=== PATIENT | female | born 1965 | race Caucasian/White ===

== ENCOUNTER → 2018-01-16 | Outpatient (CLI) | payer BC | LOC: MC.RAD 13:40 | DX: Z12.31 Encounter for screening mammogram for malignant neoplasm of breast (principal) ==

== ENCOUNTER 2021-04-08 17:33 | Emergency (ER) | payer BC ==
[~2021-04-08] VITALS: Ht 167.6 cm; Wt 63.6 kg
[2021-04-08 22:07] VITALS: BP 140/92; PULSE 89; TEMP 98.4
== END 2021-04-08 22:07 | disposition home or self-care (01) ==
LOC: COL.ER 17:33
DX: S09.90XA Unspecified injury of head, initial encounter (principal); S01.81XA Laceration without foreign body of other part of head, initial encounter; W01.10XA Fall on same level from slipping, tripping and stumbling with subsequent striking against unspecified object, initial encounter; Y93.01 Activity, walking, marching and hiking

== ENCOUNTER → 2021-10-28 | Outpatient (CLI) | payer BC | LOC: MC.RAD 08:00 | DX: N63.20 Unspecified lump in the left breast, unspecified quadrant (principal) ==

== ENCOUNTER → 2021-11-29 | Outpatient (CLI) | payer BC | LOC: MC.RAD 10:00 | DX: N63.20 Unspecified lump in the left breast, unspecified quadrant (principal) ==

== ENCOUNTER → 2022-04-14 | Outpatient (CLI) | payer BC | LOC: MC.RAD 09:50 | DX: N64.9 Disorder of breast, unspecified (principal) ==